=== PATIENT | male | born 1975 | race Caucasian/White ===

== ENCOUNTER → 2018-05-08 16:32 | Outpatient (CLI) | payer OTHER, SELFPAY ==
--- NOTE | 2018-05-08 16:39 | RAD_ITS ---
STUDY: X-RAY - LUMBAR SPINE REASON FOR EXAM: Male, 42 years old. Low back pain x1 day TECHNIQUE: 5 view(s) of the lumbar spine were obtained. COMPARISON: Report of prior study of 04/29/2010 FINDINGS: Normal lumbar lordosis. There is no substantial scoliosis. There is a normal alignment of the vertebrae. Normal vertebral bodies and endplates. Normal disc space heights. The soft tissue structures are unremarkable. RAD/L/S Spine Min 4 Views IMPRESSION: Normal x-ray examination of the lumbar spine. Electronically Signed: Julio Mcrae MD at 16:55 EDT , Service support ,
== END ==
PROVIDERS: Family Provider Family Medicine; PCP Family Medicine; Referring Provider Physician Assistant; Visit Provider Physician Assistant
DX: M54.5 Low back pain (principal)
CPT/HCPCS: 72110

== ENCOUNTER 2021-08-17 04:39 | Emergency (ER) | payer OTHER, SELFPAY ==
[2021-08-17 04:42] VITALS: BP 134/88; PULSE 82; RESP 16; TEMP 36.6; O2SAT 98; BMI 26.2
--- NOTE | 2021-08-17 04:47 | RAD_ITS ---
STUDY: X-RAY - LEFT HAND REASON FOR EXAM: Male, 45 years old. dog bite TECHNIQUE: 3 view(s) of the hand. COMPARISON: None. FINDINGS: Normal radiocarpal articulation. Normal distal radioulnar joint. Normal visualized carpal bones. Normal carpal articulations Normal carpometacarpal articulation of the thumb. Normal second through fifth carpometacarpal joints. Normal metacarpi. Normal metacarpophalangeal joint of the thumb. Normal interphalangeal joint of the thumb. Normal proximal and distal phalanges of the thumb. Normal metacarpophalangeal joints of the second through fifth fingers. Normal proximal and distal interphalangeal joints of the second through fifth fingers. Normal phalanges of the second through fifth fingers. The soft tissue structures are unremarkable. RAD/Hand Min 3 Views IMPRESSION: Normal x-ray examination of the hand. Electronically Signed: Prieto Saxena DO at 5:48 EST Tel , Service support ,
--- NOTE | 2021-08-17 04:53 | EDS_ITS ---
HPI <Dr. Mitchel Shaikh MD - Last Filed: 08/23/21 09:01> History of Present Illness Chief Complaint: Bite Informant: patient Narrative Narrative: Patient presents still having discomfort in his left hand after dog bite. He had a dog bite on Sunday. [facility]. This dog is known to him and is up-to-date on rabies and all shots. The patient is up-to-date on tetanus as of 2 years ago. He was seen and evaluated. He had a flap type laceration that was small and it was not sutured as it was an animal bite. He was placed on Augmentin which he has been taking now. He had outlined where the erythema and swelling was on Sunday when he went to the clinic. That has retracted and is doing better but he still having pain in the palmar side of the hand. Swelling is not increased. There is no drainage. He has not had fevers chills sweats nausea or vomiting. He has no history of diabetes or immunosuppression. He has had a total of 7 doses of Augmentin. He has 13 tablets left. [facility], [facility] <Dr. Mitchel Shaikh MD - Last Filed: 08/23/21 09:01> [facility] Medical History (Updated 08/23/21 @ 09:[address] Mitchel Shaikh MD) Abscess of left index finger Alcohol use Back pain Collapsed lung Dog bite Infected dog bite of left index finger Knee pain Restless legs Smoker Spontaneous pneumothorax Tenosynovitis of finger Home Medications hydrocodone-acetaminophen 1 tab PO Q6H 3 Days #12 tablet 08/17/21 [Rx Last Taken 08/18/21 06:00] levofloxacin 750 mg PO DAILY 21 Days #21 tab 08/20/21 [Rx Last Taken Unknown] oxycodone-acetaminophen [Percocet] 1 tab PO Q4H PRN 7 Days #40 tab 08/20/21 [Rx Last Taken Unknown] Allergy/AdvReac Type Severity Reaction Status Date / Time No Known Allergies Allergy Verified 08/22/21 13:25 Family History Other Seizures Surgical History no surgical history Social History Smoking Status: Former smoker counseling given: provider counseling alcohol intake: current alcohol intake frequency: 0-2 drinks per day Alcohol type: hard liquor substance use type: does not use additional social history: Does Not Take Aspirin Does Take Ibuprofen As Needed ROS <Dr. Mitchel Shaikh MD - Last Filed: 08/23/21 09:01> ROS ED Constitutional Constitutional ED: Denies chills, fever(s) or sweats Cardiovascular Cardiovascular: Denies palpitations or racing heartbeat Respiratory/Chest Respiratory/Chest: Denies cough or dyspnea Gastrointestinal Gastrointestinal: Denies nausea or vomiting Musculoskeletal Musculoskeletal: Reports other Details: See history of present illness Integumentary Reports other Details: See history of present illness Neurologic Neurologic: Denies headache(s) Endocrine Endocrinology: Denies polydipsia or polyuria Hematologic/Lymphatic Hematologic/Lymphatic: Denies easy bleeding or easy bruising Allergic/Immunologic Allergic/Immunologic ED: Denies mouth swelling or urticaria EXAM <Dr. Mitchel Shaikh MD - Last Filed: 08/23/21 09:01> Physical Exam Const Vital Signs: 08/17/21 04:42 08/17/21 06:46 08/17/21 08:20 Temperature 97.8 F Temperature Source Temporal Pulse Rate 82 88 72 Respiratory Rate 16 17 16 Blood Pressure 134/88 H 140/88 H 142/93 H Blood Pressure Mean 103 105 109 Pulse Ox 98 98 99 Oxygen Delivery Method Room Air Room Air Positive well nourished and well developed General Appearance ED: well developed and NAD HEENT atraumatic Resp normal respiratory effort and clear to auscultation bilaterally Cardio regular rhythm Rate: regular rate GI normal to inspection, nondistended, normoactive bowel sounds and non-tender Palpation: soft Back/Spine General Back: Negative for CVA tenderness Extremity Extremity Narrative: Patient has open area on the volar surface of his left index finger just distal to the MCP joint. He can bend the finger and do it passively but he has about 50% range of motion. He states he has had that since the injury. There is no odor or drainage. There is some erythema and swelling diffusely around this area but he states it is less then on Sunday. There is a pen casandra on the back of his hand and the redness is well within this now. He states that is where he marked the area of erythema. The entire finger is not swollen. It is not held in neutral position. Neuro no sensory deficits noted Sensorium / Orientation: alert Motor Exam: strength 5/5 throughout Skin Skin Narrative: Open area volar left index as above. <Dr. Chaim Reeder DO - Last Filed: 08/17/21 11:34> Physical Exam Const Vital Signs: 08/17/21 04:42 08/17/21 06:46 08/17/21 08:20 Temperature 97.8 F Temperature Source Temporal Pulse Rate 82 88 72 Respiratory Rate 16 17 16 Blood Pressure 134/88 H 140/88 H 142/93 H Blood Pressure Mean 103 105 109 Pulse Ox 98 98 99 Oxygen Delivery Method Room Air Room Air MDM <Dr. Mitchel Shaikh MD - Last Filed: 08/23/21 09:01> [facility] Lab Data Labs: Laboratory Results - last 24 hr 08/17/21 08/17/21 04:59 04:59 WBC 4.8 RBC 4.08 L Hgb 13.6 Hct 39.4 L MCV 96.6 H MCH 33.3 H MCHC 34.5 RDW Std Deviation 41.5 RDW Coeff of Yolanda 11.9 Plt Count 206 MPV 9.9 Immature Gran % (Auto) 0.200 Neut % (Auto) 52.7 Lymph % (Auto) 34.7 Whitfield % (Auto) 10.3 H Eos % (Auto) 1.7 Baso % (Auto) 0.4 Absolute Neuts (auto) 2.5 Absolute Lymphs (auto) 1.65 Nucleated RBC % 0 ESR 31 H Sodium 136 Potassium 4.4 Chloride 105 Carbon Dioxide 24.0 Anion Gap 7 BUN 12 Creatinine 0.83 Estim Creat Clear Calc 106.18 Est GFR (MDRD) Af Amer 128 Est GFR (MDRD) Non-Af 106 BUN/Creatinine Ratio 14.4 Glucose 95 Calcium 9.2 C-React Prot Ext Range 39.40 H Radiography Diagnostic Testing: Clinical Impression(s) from Imaging Studies Hand X-Ray 08/17/21 04:47 IMPRESSION: Normal x-ray examination of the hand. Electronically Signed: Prieto Saxena DO at 5:48 EST Tel , Service support , <Dr. Chaim Reeder DO - Last Filed: 08/17/21 11:34> [facility] MDM Narrative Medical decision making narrative: Patient signed out for me for monitoring until Dr. Silver was available. I spoke with Dr. Silver on the phone and discussed the case with him. We discussed the blood work and inflammatory markers. Patient had already received a dose of Zosyn. Patient did not necessarily want to stay in the hospital but stated he would stay if he had to. After speaking with Dr. Silver he stated that he could see him this afternoon in office and determine how to proceed. Patient was amenable to this. Dr. Silver recommended started doxycycline. Patient will be discharged home with [place] for pain. He is given return precautions. Lab Data Attestation: I reviewed the patient's lab results. Labs: Laboratory Results - last 24 hr 08/17/21 08/17/21 04:59 04:59 WBC 4.8 RBC 4.08 L Hgb 13.6 Hct 39.4 L MCV 96.6 H MCH 33.3 H MCHC 34.5 RDW Std Deviation 41.5 RDW Coeff of Yolanda 11.9 Plt Count 206 MPV 9.9 Immature Gran % (Auto) 0.200 Neut % (Auto) 52.7 Lymph % (Auto) 34.7 Whitfield % (Auto) 10.3 H Eos % (Auto) 1.7 Baso % (Auto) 0.4 Absolute Neuts (auto) 2.5 Absolute Lymphs (auto) 1.65 Nucleated RBC % 0 ESR 31 H Sodium 136 Potassium 4.4 Chloride 105 Carbon Dioxide 24.0 Anion Gap 7 BUN 12 Creatinine 0.83 Estim Creat Clear Calc 106.18 Est GFR (MDRD) Af Amer 128 Est GFR (MDRD) Non-Af 106 BUN/Creatinine Ratio 14.4 Glucose 95 Calcium 9.2 C-React Prot Ext Range 39.40 H Radiography Diagnostic Testing: Clinical Impression(s) from Imaging Studies Hand X-Ray 08/17/21 04:47 IMPRESSION: Normal x-ray examination of the hand. Electronically Signed: Prieto Saxena DO at 5:48 EST Tel , Service support , Discharge Plan Triage Chief Complaint: Bite ED Provider: Chaim Reeder Dx/Rx/DC Orders Clinical Impression: Dog bite, Laceration of multiple sites of hand and fingers Instructions: ED Dog Bite Prescriptions: New hydrocodone-acetaminophen 5-325 mg tablet 1 tab PO Q6H 3 Days Qty: 12 RF: 0 No Action oxycodone-acetaminophen [Percocet] 5-325 mg tablet 1 tab PO Q4H PRN (Reason: pain (scale score 7-10)) 7 Days Qty: 40 RF: 0 levofloxacin 750 mg tablet 750 mg PO DAILY 21 Days Qty: 21 RF: 1 Primary Care Provider: Care Physician,No Primary Referrals: Bert Silver MD [STAFF PHYSICIAN] - As soon as possible Care Physician,No Primary [Primary Care Provider] - Disposition Disposition: Home, Self Care Discharge Date/Time: 08/17/21 23:59
[2021-08-17 05:05] LABS: Absolute Lymphocyte Count 1.65 X10^3/uL (0.83-4.51); Absolute Neutrophil Count 2.5 X10^3/uL (2.0-7.7); Basophil# 0.02 X10^3/uL; Basophil% 0.4 % (0-1); Eosinophil# 0.08 X10^3/uL; Eosinophils% 1.7 % (0-5); Hematocrit 39.4 % (40-54); Hemoglobin 13.6 g/dL (13.0-16.5); Lymphocyte # 1.65 X10^3/ul (0.83-4.51); Lymphocyte % 34.7 % (19-41); Mean Corp Hgb Conc 34.5 g/dL (32-36); Mean Corpuscular Hgb 33.3 pg (27.0-32.0); Mean Corpuscular Volume 96.6 fL (80-94); Mean Platelet Vol. 9.9 fl (6.2-12.0); Monocyte# 0.49 X10^3/uL; Monocyte% 10.3 % (0-10); NRBC Flagged by Analyzer 0 % (0-5); Neutrophil % 52.7 % (47-70); Platelet Count 206 K/mm3 (150-450); RBC Distribution Width CV 11.9 % (11.6-14.6); RBC Distribution Width SD 41.5 fl (35.1-43.9); Red Blood Count 4.08 M/mm3 (4.6-6.2); White Blood Count 4.8 K/mm3 (4.4-11.0)
[2021-08-17 05:18] LABS: Anion Gap 7 (5-15); BUN 12 mg/dL (7-18); BUN/Creat Ratio 14.4 RATIO (10-20); Calcium,Total 9.2 mg/dL (8.5-10.1); Chloride 105 mmol/L (98-107); Creatinine, Serum 0.83 mg/dL (0.70-1.30); EST Glomerular Filtration Rate 106 mL/min (>60); Est Glom Filt Rate - Afr Amer 128 mL/min (>60); Estimated Creatinine Clearance 106.18 ml/min; Glucose 95 mg/dL (74-106); Potassium 4.4 mmol/L (3.5-5.1); Sodium Level 136 mmol/L (136-145)
[2021-08-17 05:20] LABS: Erythrocyte Sedimentation Rate 31 mm/hr (0-20)
[2021-08-17 06:46] VITALS: BP 140/88; PULSE 88; RESP 17; O2SAT 98
[2021-08-17 08:20] VITALS: BP 142/93; PULSE 72; RESP 16; O2SAT 99
--- NOTE | 2021-08-17 10:17 | NURSING ---
DR MORENO PAGED AND MESSAGES LEFT ON HIS PHONE: [phone], [phone] FINALLY RETURNED CALL TO DR URIBE
[2021-08-17 12:10] VITALS: BP 142/103; RESP 18
== END 2021-08-17 12:16 | disposition home or self-care (01) ==
PROVIDERS: Emergency Medicine; Emergency Provider Student in an Organized Health Care Education/Training Program; Visit Provider Student in an Organized Health Care Education/Training Program
DX: S60.572A Other superficial bite of hand of left hand, initial encounter (principal); W54.0XXA Bitten by dog, initial encounter; F17.220 Nicotine dependence, chewing tobacco, uncomplicated
CPT/HCPCS: 73130; 80048; 85025; 85652; 86140; 96365; 99284

== ENCOUNTER 2021-08-18 18:42 | Observation (INO) | payer OTHER, SELFPAY ==
[2021-08-18] VITALS (8 sets, daily range): BP systolic 132–157; BP diastolic 76–99; PULSE 69–81; RESP 16–18; TEMP 36.6–37.3; O2SAT 92–100; BMI 25.7
[2021-08-18] MEDS: Lactated Ringers 1,000 ML 15 ML IV ×2 (13:45→18:44)
--- NOTE | 2021-08-18 15:30 | DEB_PTH ---
PATIENT: ISABEL BAR II LOC: MS2 U#:[id number] AGE/SX: 45/M ROOM: [facility] RE08/18/[address]: Dr. Bert Silver MD : 1975 BED: 1 DIS: 08/21/2021 SPEC #: [id number] RECD: 08/19/21 08:06 STATUS: MELINDA REQ #: [id number] CHASITY: 08/18/21 15:[address]: Bert Silver DEPT: SURGICAL PATHOLOGY RECD BY: Gena Resendiz ENTERED: 08/19/21 11:36 SP TYPE: RADHA ADKINS DR: No Primary Care Phys Tissues: Soft tissues, NOS Procedures: Surgery Specimen Level IV HEADER OPERATION: Exploration dog bite wound infection volar proximal base PRE-OP DIAGNOSIS: Infected dog bite wound left index finger; tenosynovitis left index finger TISSUE SUBMITTED: Debrided tissue left index finger MICROSCOPIC DIAGNOSIS Tissue of left index finger, biopsy: Fragments of fibrofatty tissue with acute and chronic inflammation and granulation. AM:lukas 08/22/2021 MICROSCOPIC DESCRIPTION Slides are reviewed. GROSS DESCRIPTION Received in fixative is one container labeled with the patient's name and designated debrided tissue left index finger. The specimen consists of multiple irregular fragments of light swann soft tissue that in aggregate measure 1 x 0.3 x 0.1 cm. The specimen is totally submitted in one cassette. / AM:lukas 08/19/2021 TC:2 CPT: 63232
[2021-08-18] MEDS: Cefazolin 2 GM in 0.9% Normal Saline 100 ML IV (16:55)
[2021-08-18] MEDS: Lidocaine 1% /Epi 1:100 (50ml) 50 ML VIAL (17:59)
--- NOTE | 2021-08-18 18:09 | PCM.HP.BLA ---
History and Physical Date of Admission: 08/18/21 HISTORY OF PRESENT ILLNESS 45 year old man presents with persistent pain and redness and swelling left index finger at the volar proximal base after sustaining a dog bite to this finger on 08/12/21. [facility]. X-ray was done which showed no fracture and no foreign body. He was started on Augmentin. Patient noticed that the redness on the proximal hand and wrist and distal forearm had improved with the Augmentin. However the redness persisted where the dog bite occurred on the volar proximal base left index finger. This prompted a return to the ED earlier today. He has trouble moving the index finger secondary to the pain and swelling. He denies pain in the wrist and distal forearm. He denies fever. Doxycycline antibiotics were added. He presents at this time for further evaluation and treatment. Patient is right hand dominant. PAST MEDICAL HISTORY Alcohol use Back pain Collapsed lung Dog bite Infected dog bite of left index finger Knee pain Restless legs Smoker Spontaneous pneumothorax Tenosynovitis of finger PAST SURGICAL HISTORY None. ALLERGIES No Known Allergies MEDICATIONS hydrocodone-acetaminophen levofloxacin FAMILY HISTORY Other - Seizures SOCIAL HISTORY Smoking Status: Former smoker alcohol intake: current alcohol intake frequency: 0-2 drinks per day Alcohol type: hard liquor substance use type: does not use REVIEW OF SYSTEMS General - Denies fever and weight loss. Has fatigue. Eyes - Denies cataracts and glaucoma. ENT - Denies nasal congestion and sore throat. Endocrine - Denies excessive thirst and urination. Skin - Denies suspicious lesions and skin cancer. Has redness and pain and swelling volar proximal base left index finger from a dog bite. Musculoskeletal - Has joint pain, joint stiffness, weakness of muscles and joints, back pain. Denies arthritis. Neuro - Denies headaches. Cardiovascular - Denies chest pain, fatigue, and shortness of breath with exertion. Psych - Denies anxiety and depression. Respiratory - Denies chronic cough and shortness of breath. Patient is a smoker. Gastrointestinal - Denies nausea, vomiting, diarrhea, and constipation. Hematologic - Denies abnormal bruising and bleeding. Genitourinary - Denies hematuria and urinary frequency. PHYSICAL EXAMINATION General - Alert and Oriented HEENT - PERRL. EOMI. Throat is clear. Neck - Supple and nontender. No cervical adenopathy. Lungs - Clear to auscultation. Heart - Regular rate and rhythm. Abdomen - Soft and nondistended. Extremities - FROM right hand. No axillary adenopathy. Radial pulses are palpable. On the left hand there is an open dog bite wound on the volar proximal base left index finger. It is an oblique wound that measures 2 cm. There is redness and swelling and tenderness to palpation at the site of the dog bite wound. On the dorsum of the left index finger is some swelling and redness and tenderness at level of PIP joint and extending proximally to MP joint. His other fingers are nontender. He can flex his other fingers. He has trouble flexing his left index finger secondary to pain and swelling. There is some flexion seen but slight. No sensory deficits noted to pinprick. Neuro - CN II-XII grossly intact. Psych - Normal mood and affect. ASSESSMENT 1. Infected dog bite wound left index finger. 2. Tenosynovitis left index finger. 3. Smoker. PLAN Patient has a dog bite infection left index finger at the volar proximal base and redness extending onto the dorsum of the finger from the PIP joint crease to the MP joint crease. He was on Augmentin and Doxycycline had been added. Patient tells me that his Pharmacy did not have any Doxycycline and they had to order it. The options were admission to the hospital and start IV antibiotics in preparation for surgery tomorrow or add Levaquin to his antibiotic regimen. He states he would like to go home and will bead picker the Levaquin and then come in tomorrow for surgery. Surgery will be done under general anesthesia and tourniquet control with a surgical observation overnight stay in the hospital. Patient states the redness has improved with the po antibiotics, so will continue them until surgery. The redness has come to a head in the area of the dog bite itself. Because it is persistent, operative intervention is necessary. Will extend the incision in a proximal and distal direction in a zig zag fashion to get exposure to the infection and if tenosynovitis is present, will irrigate the tendon sheath. He has trouble flexing his index finger secondary to the pain and swelling. However I have seen tendon injuries from a dog bite. If it is a karl, will let it heal on its own. If it is extensive, will proceed with a tendon repair knowing that a revision tendon repair may be necessary in the future. By closing the tendon injury, there won't be any retraction of the tendon which would necessitate a tendon graft in the future. Will leave the wound open and just approximate the apex of the zigs and the zags. Will pack the wounds with a Silver dressing. Besides incision and drainage of any abscess present, there will also be excisional debridement at the level of the dog bite. Will send tissue to Pathology for analysis to rule out carcinoma and to Microbiology for culture. After discharge, he will need OT for range of motion exercises, strengthening, and edema management. Patient was informed of the risks and complications of the procedure including alternatives to surgery. These were discussed with the patient personally. Patient voices understanding and wishes to proceed. Some of the risks and complications were included in a form from the [employer] [employer]. Some of the risks and complications that were discussed included but were not inclusive of failure to diagnose including symptom relief, pain, infection, numbness, stiffness, loss of digit, RSD (CRPS), need for further surgery, contracture, and wound healing problems. Encouraged patient to stop smoking as it may have deleterious effects on wound healing. We discussed the current risks associated with COVID-19. While it is understood that there is a community spread of COVID-19, the risk of stella COVID-19 while at [facility] ([facility]) is very low; however, the risk cannot be completely mitigated because of the community spread of the disease. We discussed in detail the risk of exposure to and/or potential harm posed by the COVID-19 virus with having a surgery/procedure at this time versus the risk of delaying the surgery/procedure. It is not possible to know either the risk of delaying the surgery or procedure or chance of getting an infection with perfect accuracy, but a joint decision was made to proceed at this time with the scheduled surgery/procedure as indicated on the consent form. Patient was notified that we will need to comply with any screening or testing [facility] wishes to perform or that surgery may be delayed for any positive results. Procedure Criteria Procedure Type: Elective COVID Risk Discussion: The surgeon/proceduralist and patient have discussed in detail the risk of exposure to and/or potential harm posed by the COVID-19 virus with having a surgery/procedure at this time versus the risk of delaying the surgery/procedure. It is not possible to know either the risk of delaying the surgery or procedure or chance of getting an infection with perfect accuracy, but a joint decision was made between the patient and the surgeon/proceduralist to proceed at this time with the scheduled surgery/procedure as indicated on the consent form.
--- NOTE | 2021-08-18 18:42 | OP.PCM_ITS ---
Problems Associated Problem List Diagnoses (1) Abscess of left index finger: (2) Smoker: (3) Infected dog bite of left index finger: (4) Dog bite: (5) Tenosynovitis of finger: Report of Operation Pre-Operative Diagnosis: 1. Infected dog bite wound left index finger. 2. Tenosynovitis left index finger. 3. Smoker. Post-Operative Diagnosis: 1. Infected dog bite wound left index finger with dorsal abscess. 2. Inflammatory tenosynovitis left index finger. 3. Smoker. Surgery/Procedure Performed:: 1. Surgical preparation volar proximal base left index finger with incision and drainage and excisional debridement infected dog bite wound. 2. Incision and drainage and excisional debridement abscess dorsal aspect left index finger. 3. Drainage of tendon sheath left index finger for inflammatory tenosynovitis. Description of Surgical Findings:: year old man presents with persistent pain and redness and swelling left index finger at the volar proximal base after sustaining a dog bite to this finger on 08/12/21. [facility] to [facility] on 08[facility]13[facility]. X-ray was done which showed no fracture and no foreign body. He was started on Augmentin. Patient noticed that the redness on the proximal hand and wrist and distal forearm had improved with the Augmentin. However the redness persisted where the dog bite occurred on the volar proximal base left index finger. This prompted a return to the ED earlier today. He has trouble moving the index finger secondary to the pain and swelling. He denies pain in the wrist and distal forearm. He denies fever. Doxycycline antibiotics were added. He presents at this time for further evaluation and treatment. Patient is right hand dominant. Patient was informed of the risks and complications of the procedure including alternatives to surgery. These were discussed with the patient personally. Patient voices understanding and wishes to proceed. Some of the risks and complications that were discussed included but were not inclusive of failure to diagnose including symptom relief, pain, infection, numbness, stiffness, loss of digit, RSD (CRPS), need for further surgery, contracture, and wound healing problems. Encouraged patient to stop smoking as it may have deleterious effects on wound healing. Total tourniquet time - 47 minutes. Length of zig zags volar left index finger - 6 cm. Length of zig zags dorsal left index finger - 4.5 cm. Surgeon: Bert Silver clinical account specialist: None Type of Anesthesia: General (with tourniquet control at 250 mmHg.) Specimen's removed: 1. Infected dog bite wound abscess volar proximal base with extension to dorsal surface left index finger to Pathology and Microbiology. 2. MRSA Wound DNA by PCR. Drains: None. Estimated Blood Loss (mL): 10 ml. Description of Procedure: Patient was taken to OR in supine position and was placed under general anesthesia. The left arm and hand areas were prepped and draped in the usual fashion. SCD's were placed for DVT prophylaxis. Perioperative antibiotics were given intravenously. I elevated the left arm and placed a blue towel over the left hand and manually compressed. The tourniquet was elevated to 250 mmHg. I didn't want to use an Esmarch bandage as it may spread the infection. I then marked out extensions of the wound both proximally and distally to the wound in a zig zag fashion on both the volar and dorsal surfaces of the left index finger. Using xylocaine with epinephrine, the markings were infiltrated. After waiting 5 minutes for the anesthetic to take effect, I proceeded to get exposure to the infection on the volar surface first with an incision in a zig zag fashion. Dissection was carried down through the subcutaneous tissue until the tendon sheath was seen. The tendon sheath was quite inflamed with exudate present. There did not appear to be any injury to the flexor tendons. I debrided the exudate and fat necrosis and overlying skin to make the wound care easier with less pain because the wound would be easier to pack with a Silver dressing. Using a curette, I debrided the adherent exudate off the tendon sheath and pulleys. The neurovascular bundles on both the radial and ulnar side were far enough away from the injury site and preserved. Because of the presence of inflammatory exudate on the tendon sheath, I made a small karl was made between A! and A2 kevin system. Got a better look at the flexor tendons. A lot of inflammatory exudate was seen. No gross pus identified. I placed a size 18 angiocath into the proximal end of the tendon sheath. I then irrigated the tendon sheath with saline until the return was clear. Also went form the distal end and irrigated proximally. At this time, there was some exudate that went deep between the tendon and the neurovascular bundle on the radial side of the finger. It came out on the dorsum of the left index finger which was right in the middle of the redness and swelling on the dorsum of the left index finger. I then turned his hand over to get exposure to the dorsum of the left index finger. Zig zag incision was made at the level of the PIP joint and extending to the MP joint. Dissection was carried down to the tendon sheath. The extensor tendon appeared intact. Some pus was seen in the dorsal aspect of the left index finger. Some fat necrosis was excised and debrided. Some exudative drainage was removed using a curette. The soft tissue infection left index finger was sent to Pathology for analysis to rule out carcinoma and to Microbiology for culture. A positive culture will necessitate antibiotic therapy. He was on Levaquin and Augmentin preoperatively. The zig zag wound on the dorsum of the left index finger was irrigated with saline. The tourniquet was released after 47 minutes. Hemostasis was obtained with electrocautery and gauze compression. I then sutured the zig and the zag at the apices with 5-0 Nylon suture. This brought the skin closer together but still allows plenty of drainage during the healing process. I then packed the zigs and the zags with Mepitel nonadherent dressing and 4x4 gauze with Betadine. This was followed by 2x2 gauze in the web spaces and a dry Kerlix gauze over the hand and index finger. Finally a compression zuleima wrap was applied. Patient tolerated the procedure well and was sent to PACU in satisfactory condition. Patient will be sent upstairs for continued postop care. Will begin Silver dressing changes tomorrow. When he is discharged, will have him followup with OT for range of motion exercises, strengthening, and edema management. Will also discuss the Pathology report when it becomes available. Will also discuss the Microbiology report. A positive culture may necessitate antibiotic therapy. In the meantime, at discharge,d he will be taking Levaquin and Augmentin. Grafts/Implants Used: None. Complications None. Admit VTE Documentation VTE Present on Admission: No VTE Mechan Device Prophylaxis: SCD's VTE Pharm Prophylaxis ordered?: Yes Addendum Addendum: Surgery Charges CPT - 69894 ICD-10 - S61.251A, L08.9, W54.0xxA, M65.9, L02.512, F17.200 [id number] L02.512, S61.251A, L08.9, W54.0xxA, M65.9, F17.200 [id number] M65.9, L02.512, S61.251A, L08.9, W54.0xxA, F17.200
[2021-08-18] MEDS: HYDROmorphone 1 MG/ML Syringe IV ×2 (20:04→23:04)
[2021-08-18] MEDS: levoFLOXacin IV 750 MG/150 ML BAG 100 MG IV (21:10)
[2021-08-18] MEDS: oxyCODONE 5 MG Tablet 10 MG PO (21:10)
[2021-08-19] MEDS: oxyCODONE 5 MG Tablet 10 MG PO ×6 (01:29→21:43)
[2021-08-19] MEDS: HYDROmorphone 1 MG/ML Syringe IV ×6 (03:37→20:22)
[2021-08-19 03:41] VITALS: BP 150/81; PULSE 69; RESP 16; TEMP 36.9; O2SAT 97
[2021-08-19 04:27] LABS: Absolute Lymphocyte Count 1.68 X10^3/uL (0.83-4.51); Absolute Neutrophil Count 2.6 X10^3/uL (2.0-7.7); Basophil# 0.02 X10^3/uL; Basophil% 0.4 % (0-1); Eosinophil# 0.06 X10^3/uL; Eosinophils% 1.2 % (0-5); Hematocrit 37.2 % (40-54); Hemoglobin 12.8 g/dL (13.0-16.5); Lymphocyte # 1.68 X10^3/ul (0.83-4.51); Lymphocyte % 33.1 % (19-41); Mean Corp Hgb Conc 34.4 g/dL (32-36); Mean Corpuscular Hgb 32.8 pg (27.0-32.0); Mean Corpuscular Volume 95.4 fL (80-94); Mean Platelet Vol. 9.7 fl (6.2-12.0); Monocyte% 13.8 % (0-10); NRBC Flagged by Analyzer 0 % (0-5); Neutrophil % 51.3 % (47-70); Platelet Count 177 K/mm3 (150-450); RBC Distribution Width CV 11.9 % (11.6-14.6); RBC Distribution Width SD 40.9 fl (35.1-43.9); White Blood Count 5.1 K/mm3 (4.4-11.0)
[2021-08-19 05:07] LABS: Anion Gap 6 (5-15); BUN 11 mg/dL (7-18); BUN/Creat Ratio 14.8 RATIO (10-20); Calcium,Total 8.1 mg/dL (8.5-10.1); Chloride 102 mmol/L (98-107); Creatinine, Serum 0.74 mg/dL (0.70-1.30); EST Glomerular Filtration Rate 121 mL/min (>60); Est Glom Filt Rate - Afr Amer 147 mL/min (>60); Glucose 85 mg/dL (74-106); Potassium 3.8 mmol/L (3.5-5.1); Prealbumin 29.1 mg/dL (20.0-40.0); Sodium Level 134 mmol/L (136-145)
[2021-08-19 07:52] VITALS: BP 135/89; PULSE 70; RESP 18; TEMP 36.9; O2SAT 96
[2021-08-19] MEDS: 0.9% Saline Lock 10 ML Syringe IV ×5 (07:59→20:22)
--- NOTE | 2021-08-19 08:44 | PCS.PANDOC ---
PANDEMIC DOCUMENTATION INITIATED: Date: 03/14/2021 Time: 190
[2021-08-19] MEDS: Enoxaparin 40 MG/0.4 ML Syringe SC (09:49)
[2021-08-19 13:52] VITALS: BP 129/81; PULSE 70; RESP 18; TEMP 36.9; O2SAT 98
--- NOTE | 2021-08-19 15:10 | CASEMGMT ---
Addendum entered by Gary Mauro 08/19/21 16:21: Dr Silver confirms pt to f/u in his office for dressing changes. Addendum entered by Gary Mauro 08/19/21 16:12: Pt wishes to do OP OT and states he'll most likely go to [facility]. Script for OP OT obtained from Dr Silver and given to pt. Pt instructed on use. He was made aware, if [facility] is not in network w/his insurance, that the script can be taken to any other OP location of choice. He voices understanding. Original Note: RN CM INSTRUCTOR HAIRSPRING CM to room to meet with patient for initial transition planning/care coordination assessment. RN CM introduced self and role at [facility]. Pt voices understanding and consents to assessment at this time. Pt resting in bed in no distress at this time. Pt is A/O at this time and answers all questions appropriately. Care providers, pharmacy, and demographics verified/updated at this time. PCP: No PCP. Given list of local PCP's. Pt states his insurance co is working on finding a local PCP that is in network w/his insurance. (Currently the closest PCP in network is in [place]) Specialists: Dr Silver Preferred Pharmacy: [facility] Retail Insurance: [employer] Prescription Benefit: Yes Living Will/HPOA: Pt does not currently have LW/HCPOA and is interested in further info. Pt made SW would not be available today to meet w/him. Pt made aware that he can contact SW as an out-pt and make appt in the future if he decides he would like to talk with someone about this or would like to utilize [facility] social work for advanced directive completion. Given Food Service Supervisor [employer] card with information and contact number. Pt expresses understanding. LNOK: 2 sons: 20 yr-old and 25 yr-old. Significant other, Vonnie Alvarado Living Arrangements: Lives w/sig other, Vonnie Alvarado, in 2-story home w/3 steps to enter. Independent. Transportation: Pt states drives self and states no transportation concerns at this time. Vonnie does not drive. Pt's best friend or his best friend's mother can take him home @ d/c. DME: Denies using any DME and denies needs. HHC/SNF: No hx of either. Denies need for HHC. Pt states Dr Silver informed him plan is for him to see Dr Silver @ his office on Sunday to have dressing changed. Then, Dr Silver to do a couple more dressing changes in his office until he and sig other comfortable w/doing dressing changes. Pt wishes to return home and states has no concerns with going home at time of discharge. CM to follow for any further discharge planning/needs. Pt voices no further concerns/needs at this time. Advised pt to ask for CM if any further questions/concerns/needs arise. Voices understanding. PLAN: Home w/OP OT. Script on chart for OT, awaiting Dr Silver's signature. Script to be given to pt prior to discharge. Gaby TAPIAN RN CM
--- NOTE | 2021-08-19 16:03 | WOUNDNOTE ---
wound photo: left hand
--- NOTE | 2021-08-19 16:03 | WOUNDNOTE ---
wound photo: left hand
--- NOTE | 2021-08-19 16:13 | PCM.PN.SRG ---
Subjective Subjective Postop #1 Patient resting in bed. He states he is having a lot of throbbing pain. He continues to need IV pain medication to help with pain control. Objective Data Objective Data Vital Signs: Vital Signs Temp Pulse Resp BP Pulse Ox 98.4 F 70 18 129/81 H 98 08/19/21 13:52 08/19/21 13:52 08/19/21 13:52 08/19/21 13:52 08/19/21 13:52 Oxygen Delivery Method Room Air Weight: 164 lb Body Mass Index (BMI) 25.7 Intake & Output: Intake and Output for Last 24 Hours 08/17/21 08/18/21 08/19/21 23:59 23:59 23:59 Intake Total 1722 / 1722 1174 / 1174 Output Total 1700 / 1700 Balance 1722 / 1722 -526 / -526 Lab / Micro Data Result Diagrams: 08/19/21 03:58 08/19/21 03:58 Labs: Laboratory Results - last 24 hr 08/19/21 03:58: WBC 5.1, RBC 3.90 L, Hgb 12.8 L, Hct 37.2 L, MCV 95.4 H, MCH 32.8 H, MCHC 34.4, RDW Std Deviation 40.9, RDW Coeff of Yolanda 11.9, Plt Count 177, MPV 9.7, Immature Gran % (Auto) 0.200, Neut % (Auto) 51.3, Lymph % (Auto) 33.1, [place] % (Auto) 13.8 H, Eos % (Auto) 1.2, Baso % (Auto) 0.4, Absolute Neuts (auto) 2.6, Absolute Lymphs (auto) 1.68, Nucleated RBC % 0 08/19/21 03:58: Sodium 134 L, Potassium 3.8, Chloride 102, Carbon Dioxide 26.0, Anion Gap 6, BUN 11, Creatinine 0.74, Estim Creat Clear Calc 119.10, Est GFR (MDRD) Af Amer 147, Est GFR (MDRD) Non-Af 121, BUN/Creatinine Ratio 14.8, Glucose 85, Calcium 8.1 L, Prealbumin 29.1 Micro: Microbiology 08/18/21 18:14 Tissue - Finger Gram Stain - Final 08/18/21 18:14 Tissue - Finger Wound Culture - Preliminary No growth-Final to follow 08/18/21 14:17 Nasal Secretion SARS-CoV-2 Antigen (Rapid) - Final Physical Exam Const alert and oriented x3 General Appearance: cooperative HEENT normocephalic Resp normal respiratory effort Cardio regular rate Skin Wound Narrative: Left index finger operative dressing removed. Patient have significant pain with dressing change. Minimal bleeding. No worsening infection. Significant swelling. Assessment & Plan Assessment/Plan (1) Tenosynovitis of finger: (2) Infected dog bite of left index finger: (3) Dog bite: (4) Smoker: (5) Other acute postprocedural pain: PLAN: Patient is still having significant pain. He is requiring IV pain medication to help control his pain. He was was given an extra dose after his dressing change to help get his pain under better control. His is on Unasyn and Levofloxacin IV. Operative cultures are pending. Operative dressing changed. Wounds clean. No evidence of further infection. Minimal bleeding with dressing change. Left index finger with wounds on the dorsal and palmar aspect. Able to pack the wounds with Aquacel-Ag, covered with gauze, Kerlix and JABIER wrap. There is swelling present. Patient struggled with pain during the dressing change. Keep hand elevated to help with swelling and pain. Will change his dressing tomorrow and will evaluate if he has better pain control so he can be discharged home. Upon discharge, he will follow up in the office for dressing changes.
[2021-08-19 18:00] VITALS: BP 141/79; PULSE 74; RESP 18; TEMP 37.2; O2SAT 98
--- NOTE | 2021-08-19 18:00 | NURSING ---
dressing d/i no further reinforcement needed at this time.
[2021-08-19 20:27] VITALS: BP 129/90; PULSE 73; RESP 18; TEMP 37; O2SAT 98
[2021-08-19] MEDS: levoFLOXacin IV 750 MG/150 ML BAG 100 MG IV (21:41)
[2021-08-20] VITALS (8 sets, daily range): BP systolic 129–140; BP diastolic 65–88; PULSE 67–77; RESP 16–18; TEMP 36.8–36.9; O2SAT 97–99
[2021-08-20] MEDS: HYDROmorphone 1 MG/ML Syringe IV ×4 (00:59→21:52)
[2021-08-20] MEDS: oxyCODONE 5 MG Tablet 10 MG PO ×6 (02:08→23:52)
[2021-08-20] MEDS: Enoxaparin 40 MG/0.4 ML Syringe SC (09:08)
--- NOTE | 2021-08-20 10:59 | PCM.DC ---
Discharge Instructions Diet Discharge Diet: No restrictions and - (encourage nutritional supplementation with protein to help the healing process.) Activity Discharge Activity: May Not Drive (while taking pain medication.), May Shower (wear plastic bag over left hand when showering.) and - (no lifting with left hand. keep left hand elevated. ) May shower in (days): 1 (wear plastic bag over left hand when showering.) May resume sexual activity in: No Restrictions Weight Bearing Status: Weight bearing as tolerated Lifting Restrictions: no lifting left hand. Keep extremity elevated above heart level: Left Arm Dressing / Incision Call your doctor if your incision/area has: Continuous Slow Oozing, Sudden Increased Bleeding, Increased Pain/ Swelling, Increased Redness, Foul Smelling Discharge and Swelling at the incision site Call your doctor if you observe: Fever of 101 or Higher, Coldness, Increased Pain, Shortness of breath, Chest pain, Calf discomfort and Uncontrolled pain Suture Line Care: - (dressing changes with Silver to left index finger.) Change Dressing in: 2 days (will change in the office M,W,F until the family feels comfortable doing it themselves at home.) Cleanse incision/area with: Soap & Water (at the time of the Silver dressing change.) Catheter: - Additional Dressing/Incision Instructions:: Will instruct patient and family about the Silver dressing changes once discharged. Follow Up Care Please Follow Up With: Bert Silver MD When: Sunday08/22/21 call [phone] for appt. Test Results: Test results from this visit will be discussed in further detail at your follow-up appointment, if applicable. Discharge Plan Admission Admit Date/Time: 08/18/21 18:42 Primary Reason for Your Visit: Incision and drainage left hand infection Attending Provider: Bert Silver Primary Care Provider: Care Physician,No Primary Discharge Orders/Prescriptions Prescriptions: Continued levofloxacin 750 mg tablet 750 mg PO DAILY 21 Days Qty: 21 RF: 1 No Action oxycodone-acetaminophen [Percocet] 5-325 mg tablet 1 tab PO Q6H PRN (Reason: pain (scale score 7-10)) 7 Days Qty: 28 RF: 0 Referrals / Follow Up: Care Physician,No Primary [Primary Care Provider] - Disposition Disposition (needs filled in before D/C Order can be placed): Home, Self Care
--- NOTE | 2021-08-20 20:00 | PCM.PN.SRG ---
Subjective Subjective Postop #2 Patient is resting comfortably until the dressing change then he gets a little apprehensive secondary to the pain. He tolerated the Silver dressing change reasonably well but still needed IV analgesia. Objective Data Objective Data Vital Signs: Vital Signs Temp Pulse Resp BP Pulse Ox 98.2 F 74 16 134/87 H 97 08/20/21 17:51 08/20/21 17:51 08/20/21 17:51 08/20/21 17:51 08/20/21 17:51 Oxygen Delivery Method Room Air Weight: 164 lb Body Mass Index (BMI) 25.7 Intake & Output: Intake and Output for Last 24 Hours 08/18/21 08/19/21 08/20/21 23:59 23:59 23:59 Intake Total 1722 / 1722 2239.25 / 2239.25 2885.00 / 2885.00 Output Total 1700 / 1700 Balance 1722 / 1722 539.25 / 539.25 2885.00 / 2885.00 Lab / Micro Data Attestation: I reviewed the patient's lab results. Result Diagrams: 08/19/21 03:58 08/19/21 03:58 Micro: Microbiology 08/18/21 18:14 Tissue - Finger Gram Stain - Final 08/18/21 18:14 Tissue - Finger Wound Culture - Preliminary No growth-Final to follow 08/18/21 14:17 Nasal Secretion SARS-CoV-2 Antigen (Rapid) - Final ABG Data Attestation: I personally reviewed and interpreted this ABG as follows: Physical Exam Narrative General - Alert and Oriented HEENT - PERRL. EOMI. Abdomen - Soft and nondistended. Extremities - FROM right upper extremity. In the left hand, the swelling is slowly resolving. Wounds are stable and show some granulation tissue. Small amount of serosanguinous drainage. Range of motion left index finger limited by postop pain and swelling. Wounds redressed with Silver dressing changes. Still painful with the dressing change and needed IV Dilaudid for it. No axillary adenopathy. Radial pulses are palpable. Psych - Normal mood and affect. Assessment & Plan Assessment/Plan (1) Abscess of left index finger: (2) Smoker: (3) Infected dog bite of left index finger: (4) Tenosynovitis of finger: (5) Dog bite: PLAN: Patient's wounds left index finger are stable. Swelling slowly resolving. Some serosanguinous drainage. No evidence of continued infection. Finger redressed with Silver dressings. Not as painful as the first dressing change but still needed IV analgesia. We will work on transitioning him to po analgesia for discharge. Anticipate discharge tomorrow. Left index finger range of motion limited by postop pain and swelling. Showed him how to keep the other fingers from stiffening up during this initial postop period. Stressed to him the importance of being able to flex the MP joints as close as possible to 90 degrees. He will have to use his other hand to do this passively. After discharge will set him up with OT for range of motion exercises, strengthening, and edema management. Prealbumin was 29.1. Encourage nutritional supplementation with protein to help the healing process. Operative cultures are negative thus far. Continue Levaquin and Augmentin. Encouraged patient to stop smoking as it may have deleterious effects on wound healing.
[2021-08-20] MEDS: levoFLOXacin IV 750 MG/150 ML BAG 100 MG IV (21:47)
[2021-08-21] MEDS: oxyCODONE 5 MG Tablet 10 MG PO ×2 (05:20→09:47)
[2021-08-21 05:25] VITALS: BP 134/90; PULSE 74; RESP 18; TEMP 36.9; O2SAT 98
[2021-08-21 09:26] VITALS: BP 141/88; PULSE 94; RESP 18; TEMP 36.8; O2SAT 97
[2021-08-21 12:01] VITALS: BP 124/84; PULSE 82; RESP 16; TEMP 36.7; O2SAT 100
--- NOTE | 2021-08-21 20:02 | DS.PCM_ITS ---
Providers Date of Admission: 08/18/21 Primary Care Physician: Thania Primary Care Phys Attending Physician: Dr. Bert Silver MD Diagnosis Discharge Diagnosis (1) Tenosynovitis of finger: Status: Acute Code(s): M65.9 - Synovitis and tenosynovitis, unspecified (2) Infected dog bite of left index finger: Status: Acute Code(s): S61.251A - Open bite of left index finger without damage to nail, initial encounter; L08.9 - Local infection of the skin and subcutaneous tissue, unspecified; W54.0XXA - Bitten by dog, initial encounter (3) Dog bite: Status: Acute Code(s): W54.0XXA - Bitten by dog, initial encounter (4) Smoker: Status: Chronic Code(s): F17.200 - Nicotine dependence, unspecified, uncomplicated (5) Other acute postprocedural pain: Status: Acute Code(s): G89.18 - Other acute postprocedural pain (6) Abscess of left index finger: Status: Acute Code(s): L02.512 - Cutaneous abscess of left hand Medications at Discharge Home Medications levofloxacin 750 mg PO DAILY 21 Days #21 tab 08/20/21 oxycodone-acetaminophen 5 mg-325 mg tablet 1 tab PO Q6H PRN 7 Days #28 tab 09/05/21 Hospital Course Operations None (08/18/21 - Surgical preparation volar proximal base left index finger with incision and drainage and excisional debridement infected dog bite wound) and - (08/18/21 - Incision and drainage and excisional debridement abscess dorsal aspect left index finger and drainage of tendon sheath left index finger for inflammatory tenosynovitis.) Procedures None Summary of Care Provided Minutes Spent on Discharge: 40 Hospital Course: 45 year old man presents with persistent pain and redness and swelling left index finger at the volar proximal base after sustaining a dog bite to this finger on 08/12/21. [facility] to [facility]. X-ray was done which showed no fracture and no foreign body. He was started on Augmentin. Patient noticed that the redness on the proximal hand and wrist and distal forearm had improved with the Augmentin. However the redness persisted where the dog bite occurred on the volar proximal base left index finger. This prompted a return to the ED earlier today. He has trouble moving the index finger secondary to the pain and swelling. He denies pain in the wrist and distal forearm. He denies fever. Doxycycline antibiotics were added. He presents at this time for further evaluation and treatment. Patient is right h and dominant. He was taken to the operating room on 08/18/21 where he underwent surgical preparation volar proximal base left index finger with incision and drainage and excisional debridement infected dog bite wound and incision and drainage and excisional debridement abscess dorsal aspect left index finger and drainage of tendon sheath left index finger for inflammatory tenosynovitis. He tolerated the procedure well. Perioperatively he was treated with Levaquin and Unasyn. His finger wounds were quite painful when doing the Silver dressing changes. He needed IV analgesia for a couple of days postop. On postop #3, he was able to tolerate the Silver dressing change with po pain medication. He was discharged home omn 08/21/21 in satisfactory condition. Operative cultures were negative at discharge. When the final culture is available, antibiotic modification may be necessary. Vineet will continue Levaquin and Augmentin at home. A script was written for Percocet. He will followup in my office on 08/22/21 for a Silver dressing change. After some healing, will set him up with OT for range of motion exercises, strengthening, and edema management. Condition upon discharge is good. Weight / BMI Weight Weight: 164 lb Body Mass Index (BMI) 25.7 ABG / Lab / Microbiology Data Attestation: I reviewed the patient's lab results. Result Diagrams: 08/19/21 03:58 08/19/21 03:58 Microbiology: Microbiology 08/18/21 18:14 Tissue - Finger Gram Stain - Final 08/18/21 18:14 Tissue - Finger Wound Culture - Final No growth aerobically. 08/18/21 18:14 Tissue - Finger Anaerobic Culture - Preliminary No growth in 48 hours. 08/18/21 14:17 Nasal Secretion SARS-CoV-2 Antigen (Rapid) - Final Meaningful Use Info Meaningful Use Diagnoses (Choose all that apply): None applicable Discharge Plan Admission Admit Date/Time: 08/18/21 18:42 Primary Reason for Your Visit: Incision and drainage left hand infection Attending Provider: Bert Silver Primary Care Provider: Care Physician,No Primary Discharge Orders/Prescriptions Prescriptions: Continued levofloxacin 750 mg tablet 750 mg PO DAILY 21 Days Qty: 21 RF: 1 No Action oxycodone-acetaminophen [Percocet] 5-325 mg tablet 1 tab PO Q6H PRN (Reason: pain (scale score 7-10)) 7 Days Qty: 28 RF: 0 Referrals / Follow Up: Bert Silver MD [STAFF PHYSICIAN] - In 1 Day (on 08/22/21 for a Silver dressing change.) Care Physician,No Primary [Primary Care Provider] - Disposition Disposition (needs filled in before D/C Order can be placed): Home, Self Care
== END 2021-08-21 12:12 | disposition home or self-care (01) ==
LOC: SDC 19:20 → MS2 08-19 07:07
PROVIDERS: Admitting Provider Surgery; Referring Provider Surgery; Visit Provider Surgery
PROC: (CPT 15004; principal; 2021-08-18 15:15)
DX: S61.251A Open bite of left index finger without damage to nail, initial encounter (principal); W54.0XXA Bitten by dog, initial encounter; M65.842 Other synovitis and tenosynovitis, left hand; Z87.891 Personal history of nicotine dependence; G25.81 Restless legs syndrome; Z79.899 Other long term (current) drug therapy; L08.9 Local infection of the skin and subcutaneous tissue, unspecified; L02.512 Cutaneous abscess of left hand
CPT/HCPCS: 15004; 26011; 26020; 36415; 80048; 84134; 85025; 87070; 87075; 87102; 87176; 87205; 87206; 87426; 88304; 88305; 96365; 96366; 96367; 96372; 96375; 96376; 99218; J7120; A4216; G0378; J0295; J2405

== ENCOUNTER 2021-12-06 13:00 | Outpatient (RCR) | payer OTHER, SELFPAY ==
--- NOTE | 2021-09-08 15:26 | HP.OTEVAL ---
Patient's Visit Information ISABEL BAR II is a 45 year old M, referred to Occupational Therapy by Nurys Harvey, RYAN-Oumar, with a diagnosis of left IF infection. Date of Evaluation: 09/08/21 Occupational Therapist: Christine Yan, OTR/Samantha, CHT - Subjective This 45 year old male was seen for OT eval with dx of open dog bite of left IF local infection - synovitis and tenosynovitis -. pt states he was bit by a arabic mastiff- on bit and [facility] - started on Antibiotic- Dr. ojeda placed on another antibiotic- still ended up with sx on 08-18-21- where pt had DOI. pt is right handed- some pain. pt arrives today with concerns of his inability to form a composite fist- or use his hand for ADls and IADls. - Pain left hand 3 Pain Intensity Range: 2, 7 - ROM MP: right IF 0/90 left 0/55 PIP: right IF 0/95 left 0/15 DIP: right IF 0/60 left 15/15 ROM Comments: pt demo with limited left IF ROM - with open wound - Strength Ornamental Iron Erector: right 115# left NT - Edema PIP: right 6.5cm left 8.4cm - Sensation Sensation Comments: reports sensation of pins and needle sensation- - Quick DASH-Disab of Arm,Shoulder& Hand Quick DASH Score: 76.6650 - Goals Goal:: pt will demo a increase in left heavy equipment plumbing supervisor strength to 60# or greater to increase pts ind. with IADLs by d.c. pt will demo a left lateral and tripod pinch at 10# or greater to increase pts ind. with ADL and IADL by d/c Goal:: pt will demo the ability to form a tight composite fist to hold coins without dropping them by d/c. pt will demo a increase in left IF MCP flex by 10*, PIP flex by 90* and DIP flex by 50* to increase pts ability to form a composite fist by d.c Goal:: pt will report no pain greater than 1/10 with use of left hand with ADL and IADLs by d.c Goal:: pt will demo a reduction in left IF measurements by .5cm indicating a decrease edema by d.c Goal:: pt will demo a understanding of scar mtg by end of 3rd session to limit scar adhesions - Rehabilitation General Assessment: pt demo with limited left IF ROM and weakness limiting pts ind. with ADLs and IADLs- pt continues to have wound at IF/MF web space- all other incisions are healed- Pt would benefit from OT services 2-3x week for 6 weeks to return pts ability to form a composite fist and strength to perform ADL and IADLs at IND. leveles. Today therapist ed pt on tendon glide and scar mtg- ed. pt that it is OK to stretch finger for periods of time (20-30 sec) pt demo understanding and agree to POC. Rehabilitation Potential: Good - Anticipated Interventions A/AAROM/PROM, Strengthening, Edema Control, Scar Care, Triggerpoint Release, Desensitization, Sensory Retraining, Wound Care, Modalities, Orthoses, Ergonomic Education, Education re Diagnosis - Visit Plan Frequency: 2-3x /Week Duration: 4 Weeks TEXT: Thank you for the opportunity to evaluate your patient. For Medicare and Medicare HMO plans, please review the plan of care and approve it. It will need to be FAXED BACK to us at [phone] for Medicare purposes. Please let me know if there are questions or concerns regarding this plan of care. Physician Signature: Date:
--- NOTE | 2021-11-22 15:17 | HP.OTREVAL ---
Nurys Harvey, RYAN-C, It has been my pleasure to treat ISABEL BAR II over the last 12 visits for left IF infection. Please see the progress note below for an update on the occupational therapy plan of care! Subjective: Pt. arrived early. Pt. reporting that he is using his orthoses. Pt. reported that he is doing scar mgt. Objective/Function: MCP 70*. PIP45*. DIP 37*. L adaptive physical education teacher 50#. L IF 7 cm. composite fist all fingers but IF lack 7cm away from composite fist-. pt is making gains and will continue with OT services every other week for the next 12 weeks Plan Frequency: Every Other Week Duration: 2 Months Visits in this POC: 24 Plan: cont with L IF flexion, strengthening. orthosis static progressive. Every other week. Goals - Goals Patient Goals: Decrease Swelling/Stiffness, Improve Fine Motor Skills, Use Hand/Wrist/Arm Normally Again Goal:: pt will demo a increase in left adaptive physical education teacher strength to 60# or greater to increase pts ind. with IADLs by d.c. pt will demo a left lateral and tripod pinch at 10# or greater to increase pts ind. with ADL and IADL by d/c Goal:: pt will demo the ability to form a tight composite fist to hold coins without dropping them by d/c. pt will demo a increase in left IF MCP flex by 10*, PIP flex by 90* and DIP flex by 50* to increase pts ability to form a composite fist by d.c Goal:: pt will report no pain greater than 1/10 with use of left hand with ADL and IADLs by d.c Goal:: pt will demo a reduction in left IF measurements by .5cm indicating a decrease edema by d.c Goal:: pt will demo a understanding of scar mtg by end of 3rd session to limit scar adhesions Anticipated Interventions Anticipated Interventions: A/AAROM/PROM, Strengthening, Edema Control, Scar Care, Triggerpoint Release, Desensitization, Sensory Retraining, Wound Care, Modalities, Orthoses, Ergonomic Education, Education re Diagnosis Please do not hesitate to contact me at [phone] by phone or if you have questions or concerns regarding this new plan of care! Sincerely, Christine Yan, OTR/L, CHT
--- NOTE | 2021-12-07 07:45 | HP.OTREVAL ---
Nurys Harvey, RYAN-C, It has been my pleasure to treat ISABEL BAR II over the last 13 visits for left IF infection. Please see the progress note below for an update on the occupational therapy plan of care! Subjective: Pt. arrived stating he is still wearing orthosis and neurotin. Objective/Function: MCP 75*. PIP 70*. DIP 40*. L branch customer service representative 60#. L IF at PIP 7 1/2 cm. pt making gains with ROM Passive and active - noted with passive placement by therapist and than when asked pt to hold composite fist finger does not maintain placed flexion position. Advised pt to continue and focuse on his orthosis for end range composite flexion of IF and strengthening. pt agree. Plan Frequency: Every Other Week Duration: 3 Months Visits in this POC: 24 Plan: cont with L IF flexion, strengthening, reducing scar adhesion. orthosis static progressive. Every other week. Goals - Goals Patient Goals: Decrease Swelling/Stiffness, Improve Fine Motor Skills, Use Hand/Wrist/Arm Normally Again Goal:: pt will demo a increase in left branch customer service representative strength to 60# or greater to increase pts ind. with IADLs by d.c. pt will demo a left lateral and tripod pinch at 10# or greater to increase pts ind. with ADL and IADL by d/c Goal:: pt will demo the ability to form a tight composite fist to hold coins without dropping them by d/c. pt will demo a increase in left IF MCP flex by 10*, PIP flex by 90* and DIP flex by 50* to increase pts ability to form a composite fist by d.c Goal:: pt will report no pain greater than 1/10 with use of left hand with ADL and IADLs by d.c Goal:: pt will demo a reduction in left IF measurements by .5cm indicating a decrease edema by d.c Goal:: pt will demo a understanding of scar mtg by end of 3rd session to limit scar adhesions Anticipated Interventions Anticipated Interventions: A/AAROM/PROM, Strengthening, Edema Control, Scar Care, Triggerpoint Release, Desensitization, Sensory Retraining, Wound Care, Modalities, Orthoses, Ergonomic Education, Education re Diagnosis Please do not hesitate to contact me at [phone] by phone or if you have questions or concerns regarding this new plan of care! Sincerely, Christine Yan, OTR/L, CHT
--- NOTE | 2022-03-14 10:42 | HP.OT.NRP ---
ISABEL Yobany BAR II was seen in my office for initial evaluation on 09/08/21. The following Plan of Care was established for this patient: Initial Frequency: Every Other Week Initial Duration: 3 Months Plan: cont with L IF flexion, strengthening, reducing scar adhesion. orthosis static progressive. Every other week. Anticipated Interventions: A/AAROM/PROM, Strengthening, Edema Control, Scar Care, Triggerpoint Release, Desensitization, Sensory Retraining, Wound Care, Modalities, Orthoses, Ergonomic Education, Education re Diagnosis This patient was last seen in our office 12/06/21. Pertinent comments regarding their Occupational therapy will appear below: pt was seen for OT 13 sessions- pt demo limited ROM but demo IND with HEP- pt to work on ROM as able and return to for further assessment. pt DC with HEP At this point I will be discontinuing this patient from occupational therapy. I would be happy to see this patient again in the future if found appropriate by the physician. Thank you! Christine Yan, OTR/L, CHT
== END 2021-12-06 19:00 | disposition home or self-care (01) ==
LOC: OT 13:00
PROVIDERS: Referring Provider Nurse Practitioner Family; Visit Provider Nurse Practitioner Family
DX: M65.9 Synovitis and tenosynovitis, unspecified (principal); S61.251D Open bite of left index finger without damage to nail, subsequent encounter; L08.9 Local infection of the skin and subcutaneous tissue, unspecified; W54.0XXD Bitten by dog, subsequent encounter; L02.512 Cutaneous abscess of left hand; G89.18 Other acute postprocedural pain; F17.200 Nicotine dependence, unspecified, uncomplicated; Z98.890 Other specified postprocedural states
CPT/HCPCS: 97035; 97110; 97140; 97166; 97530; 97760

== ENCOUNTER 2024-05-07 05:48 | Emergency (ER) | payer OTHER, SELFPAY ==
[2024-05-07 05:48] VITALS: BP 161/95; PULSE 98; RESP 18; TEMP 36.5; O2SAT 97; BMI 28.7
[2024-05-07 05:51] VITALS: BP 161/95; PULSE 98; RESP 16; TEMP 36.5; O2SAT 97
--- NOTE | 2024-05-07 05:54 | RAD_ITS ---
EXAM: XR LEFT HAND, 1 VIEW CLINICAL INDICATION: thumb lac thumb lac TECHNIQUE: Frontal and/or lateral views of the left hand. COMPARISON: X-ray left hand 08/17/2021. FINDINGS: BONES/JOINTS: Unremarkable. No acute fracture. No dislocation. SOFT TISSUES: Unremarkable. No radiopaque foreign body. RAD/Hand Min 3 Views IMPRESSION: No demonstrated fracture, dislocation, or destructive osseous lesion. No demonstrated radiodense foreign body. Electronically Signed: Gene Tran MD at 6:39 EDT Reading Location ID and State: [facility] / [place] , Service support ,
--- NOTE | 2024-05-07 05:58 | EDS_ITS ---
HPI History of Present Illness Chief Complaint: Laceration Narrative Narrative: Patient is a 48-year-old male with no known significant past medical history did not follow with a doctor in a regular basis who presents to the emergency department chief complaint of left thumb laceration. Patient states that earlier this morning he was cutting up vegetables for his lunch prior to going work when he accidentally cut his thumb. He states his last tetanus shot was a year ago prior to his surgery. Patient denies any other complaints at this point time. [facility] Medical History Stiffness of finger joint of left hand Abscess of left index finger Alcohol use Restless legs Smoker Infected dog bite of left index finger Tenosynovitis of finger Spontaneous pneumothorax Dog bite Collapsed lung Back pain Knee pain Home Medications ?Medication ?Instructions ?Recorded ?Last Taken ?Type gabapentin 300 mg capsule 300 mg PO BID PRN refill 30 days 11/03/21 Unknown Rx #60 caps ciprofloxacin HCl 0.3 % eye drops See Rx Instructions ophthalmic 12/16/22 Unknown Rx (eye) .COMPLEX #2.5 mL Allergy/AdvReac Type Severity Reaction Status Date / Time No Known Allergies Allergy Verified 12/16/22 08:25 Family History Other Seizures Surgical History History of hand surgery Social History Smoking Status: Never smoker alcohol intake: current alcohol intake frequency: 0-2 drinks per day Alcohol type: hard liquor substance use type: does not use additional social history: Does Not Take Aspirin Does Take Ibuprofen As Needed ROS ROS ED ROS Narrative Constitutional: Denies fevers, chills, headaches Neurological: Denies numbness, weakness, tingling Skin: Complains of cut to left thumb as noted above EXAM Physical Exam Narrative Exam Narrative: General: Patient lying in bed rest comfortably did not appear to be in acute distress Head: Atraumatic, normocephalic Eyes: PERRL bilateral, EOMI bilateral, no conjunctival injection noted Neck: Soft, supple, trach midline Cardiovascular: Regular rate and rhythm Extremities: +5/5 strength noted in the bilateral upper and lower extremities, radial pulses +2/4 in the bilateral per extremities. Patient able give me okay sign thumbs up and oppose his thumb to his pinky bilaterally. He is able to flex and extend his thumb without any difficulty on the left side. Neurological: Patient following commands knew that he was at [facility] years 2023. Sensation grossly intact in median ulnar radial nerve distributions bilaterally. Skin: Patient has a 1 and half centimeter laceration to the volar aspect of his left proximal thumb. No active bleeding noted. Const Vital Signs: 05/07/24 05:48 05/07/24 05:51 Temperature 97.7 F L 97.7 F L Temperature Source Oral Temporal Pulse Rate 98 98 Respiratory Rate 18 16 Blood Pressure 161/95 H 161/95 H Blood Pressure Mean 117 117 Pulse Ox 97 97 Oxygen Delivery Method Room Air Room Air MDM MDM MDM Narrative Medical decision making narrative: Patient is a 48-year-old male who presents to the emergency department with a chief complaint of thumb laceration after attempting to cut up some vegetables this morning. Patient will have an x-ray obtained here to ensure that there is no retained foreign bodies. On the differential diagnose includes but limited to retained foreign body, left thumb laceration. Once x-rays reviewed he will be reevaluated. Patient's x-ray of his hand was reviewed and independently interpreted by myself as well as by radiology that showed no acute fracture or dislocation no retained foreign body. No destructive osseous lesions noted. Patient was advised to have his sutures removed approximately 7 to 10 days. He is referred to primary care physician and was advised to have them remove them or come back here to the emergency department. He is encouraged to watch out for signs of infection. Patient was encouraged to not soak his sutures. He is encouraged to keep the area dry and clean. He would like to go home at this point time all question concerns answered he is discharged home in stable condition. Procedure note Procedure name: Laceration repair Indication: Reduce risk of infection Location: 1/2 cm laceration on the volar aspect of his left thumb proximal portion simple Preprocedure diagnosis: Laceration Postprocedure diagnosis: Repaired laceration Informed consent was obtained prior to procedure started. Procedure: The appropriate timeout was taken. The area was prepped and draped in usual sterile fashion. Local anesthesia was achieved using 2 cc of lidocaine 1% without epinephrine. Wound was copiously irrigated. 3 4-0 Ethilon interrupted sutures were placed. Estimated blood loss was less than 0.5 mL. Dressing was applied to the area and anticipatory guidance, as well as standard postprocedure care was explained. Return precautions are given. Patient Toller procedure well without any complications. Follow-up visit for suture removal and evaluation of laceration. Radiography Diagnostic Testing: Clinical Impression(s) from Imaging Studies Hand X-Ray 05/07/24 05:54 IMPRESSION: No demonstrated fracture, dislocation, or destructive osseous lesion. No demonstrated radiodense foreign body. Electronically Signed: Gene Tran MD at 6:39 EDT , Discharge Plan Triage Chief Complaint: Laceration ED Provider: Christopher Werner Dx/Rx/DC Orders Clinical Impression: Laceration of thumb, left Instructions: ED Laceration, All Closures Prescriptions: No Action gabapentin 300 mg capsule 300 mg PO BID PRN (Reason: refill) 30 Days Qty: 60 1RF ciprofloxacin HCl 0.3 % drops See Rx Instructions ophthalmic (eye) .COMPLEX Qty: 2.5 0RF Rx Instructions: put 1-2 drps in affected eye(s) every 2hr up to 8 times/day x2days; then 4 times/day x5days ophthalmic (eye) Primary Care Provider: Care Physician,No Primary Referrals: Care Physician,No Primary [Primary Care Provider] - Activity Restrictions/Additional Instructions: Follow-up with your primary care physician that referred to to have your sutures removed in approximately 7 to 10 days or return here. Watch out for signs infection such as surrounding redness, purulent drainage from the wound if this occurs you need to be evaluated by the primary care physician or return here. Keep the area dry and clean. No soaking of the sutures. Return with worsening symptoms or other concerns. Print Language: New Zealander Disposition Disposition: Home, Self Care
[2024-05-07] MEDS: Lidocaine 1% (20 ml mdv) 20 ML Vial 10 ML INFILT (06:38)
[2024-05-07 06:51] VITALS: BP 141/70; PULSE 82; RESP 16; TEMP 36.7; O2SAT 97
[2024-05-07 06:58] VITALS: BP 141/70; PULSE 97; RESP 16; TEMP 36.7; O2SAT 97
== END 2024-05-07 06:59 | disposition home or self-care (01) ==
PROVIDERS: Emergency Provider Emergency Medicine; Visit Provider Emergency Medicine
DX: S61.012A Laceration without foreign body of left thumb without damage to nail, initial encounter (principal); W26.8XXA Contact with other sharp object(s), not elsewhere classified, initial encounter; Y93.G1 Activity, food preparation and clean up
CPT/HCPCS: 12001; 73130; 99282